=== PATIENT | female | born 2000 | race Caucasian/White ===

== ENCOUNTER → 2018-08-07 | Outpatient (CLI) | payer OTHER ==
--- NOTE | 2018-08-07 15:10 | WOMENS IMAGING REPORT ---
EXAM DESCRIPTION: U/S BREAST UNILAT LIMITED COMPLETED DATE/TIME: 08/07/2018 11:24 am REASON FOR STUDY: D24.1 D24.1 BENIGN NEOPLASM OF RIGHT BREAST COMPARISON: None. TECHNIQUE: Real-time and static grayscale imaging performed of the right breast targeted to the area of clinical/mammographic concern. Selected color Doppler images recorded. LIMITATIONS: None. FINDINGS: MASS: In the 12 o'clock location there is a slightly heterogenous solid mass measuring 2.0 x 2.9 x 3.5 cm. Fairly smooth margins. Oriented parallel to the skin. Distal acoustic enhancement . Areas of flow are present on Doppler imaging. OTHER: No other significant finding. IMPRESSION: Solid mass in the superior breast. The patient's history indicates a known fibroadenoma for 2 years with recent increase in size. Given the clinical picture, biopsy should be considered t o confirm that this is a benign fibroadenoma with no malignant components. BIRAD: 4 Suspicious. Biopsy should be performed in the absence of clinical contra-indication. RECOMMENDATION: RECOMMENDED FOLLOW-UP: Biopsy should be considered. The lesion is amenable to ultra sound-guided biopsy if desired. COMMENT: The [employer] (ACR) has developed recommendations for screening MRI of the breasts in certain patient populations, to be used in conjunction with mammography. Breast MRI s urveillance may be appropriate for women with more than 20% lifetime risk of developing breast cancer as determined by genetic testing, significant family history of the disease, or history of mantle r adiation for Hodgkins Disease. ACR Practice Guidelines 2008. TECHNICAL DOCUMENTATION: JOB ID: [id number] [employer]- All Rights Reserved Reading location - IP/workstation name: [email or web address]
== END ==
LOC: WI 11:08
PROVIDERS: ATTEND Family Medicine
DX: D24.1 Benign neoplasm of right breast (principal)
CPT/HCPCS: 76642

== ENCOUNTER 2018-11-22 06:56 | Day surgery (SDC) | payer OTHER ==
[2018-11-08 12:08] LABS: HEMATOCRIT 39.3 % (36.0-47.0); HEMOGLOBIN 13.1 g/dL (12.0-15.5); MEAN CORPUSCULAR HEMOGLOBIN 27.8 pg (27.0-33.4); MEAN CORPUSCULAR HGB CONC 33.3 g/dL (32.0-36.0); MEAN CORPUSCULAR VOLUME 84 fl (80-97); PLATELET COUNT 188 10^3/uL (150-450); RED CELL DISTRIBUTION WIDTH 15.4 % (11.5-14.0); WHITE BLOOD COUNT 3.9 10^3/uL (4.0-10.5)
[~2018-11-22 06:56] MED LIST: CEFAZOLIN 1 GM/D5W RTU 1 GM/50 ML RTUPB IV PRN; LACTATED RINGERS 1000 ML IV PRN; LIDOCAINE 0.5% INJ-PF (5 MG/ML) 50 ML SDV SUBCUT PRN
[2018-11-22] MEDS ORDERED: CEFAZOLIN 1 GM/D5W RTU 1 GM/50 ML RTUPB IV ONE (07:02)
[2018-11-22] MEDS ORDERED: SCOPOLAMINE HYDROBROMIDE 1.5 MG PATCH.TD72 ONE (07:48)
[2018-11-22] MEDS ORDERED: METOCLOPRAMIDE HCL INJ/PF 10 MG/2 ML SDV ONE (07:48)
[2018-11-22] MEDS ORDERED: MIDAZOLAM 2 MG/2 ML INJ ONE ×2 (07:48→08:34)
[2018-11-22] MEDS ORDERED: FAMOTIDINE INJ/PF 20 MG/2 ML SDV IV ONE (07:49)
[2018-11-22] MEDS ORDERED: PROPOFOL INJ 200 MG/20 ML VIAL IV ONE (08:34)
[2018-11-22] MEDS ORDERED: FENTANYL CITRATE INJ/PF 100 MCG/2 ML AMPUL ONE (08:34)
[2018-11-22] MEDS ORDERED: LIDOCAINE 1%/EPINEPHRINE INJ 20 ML VIAL ONE (08:37)
[2018-11-22] MEDS ORDERED: LIDOCAINE 1%/EPINEPHRINE INJ 20 ML VIAL INJ ONE ×2 (09:20)
--- NOTE | 2018-11-22 10:09 | Operative Report ---
Operative Report DATE OF SURGERY: 11/22/18 PREOPERATIVE DIAGNOSIS: Right breast fibroadenoma POSTOPERATIVE DIAGNOSIS: Same OPERATION: Complete excision of right breast fibroadenoma with intraoperative ultrasonography SURGEON: CAROLINE TADEO CURB MACHINE OPERATOR: DELIA GARCES ANESTHESIA: GA TISSUE REMOVED OR ALTERED: Right breast mass consistent with fibroadenoma COMPLICATIONS: None ESTIMATED BLOOD LOSS: Scant INTRAOPERATIVE FINDINGS: See below PROCEDURE: Patient was seen in the preoperative holding area where the right breast was marked. She was then taken to the main operating room where general anesthesia was induced. Right breast was prepped and draped in sterile fashion. Surgical plan surgical timeout were conducted. The right breast marked for a periareolar incision of the 12 to the 2 o'clock position. The right breast was scanned with a variable frequency linear transducer and approximately 4 to 5 cm well-circumscribed slightly lobulated mass was identified at the 1:30 position right breast, the center approximately 5 cm from the nipple. The skin was anesthetized with 1% plain lidocaine, and approximately 2 and half centimeter incision was made with a #15 blade along the confluence between the areolar and the breast epithelium. Using gentle hook retractors, we developed a subcutaneous plane towards the target mass. A series of S retractors were used for optimal exposure, and electrocautery used to separate the breast tissue from the very well delineated and circumscribed fibroadenoma. 2-0 Vicryl suture and eventually 0 silk were used to retract the specimen out of the breast pocket. The final specimen was removed from the b reast, sent to pathology for permanent analysis with a portion of 0 silk embedded. We checked the breast cavity for bleeding and there was none. The skin was in excellent condition. We felt the operation was complete. Dermis closed with 3- 0 Vicryl, and skin closed with Dermabond glue. Patient tolerated the procedure well, extubated, taken recovery in stable condition. The physician compliance assistant, Ms. Singh, provided assistance during this case by: retracting tissue, instillation of local anesthesia and closure of skin incision.
--- NOTE | 2018-11-22 10:17 | Discharge Summary ---
Discharge Summary (SDC) - Discharge Final Diagnosis: Fibroadenoma right breast Date of Surgery: 11/22/18 Discharge Date: 11/22/18 Condition: Good Treatment or Instructions: Patient to wear supportive bra; return to clinic in 2 weeks, [facility]; prescription for Toradol provided. No excessive lifting or physical activity until seen in clinic Referrals: MILE LOPEZ MD [Primary Care Provider] - Discharge Diet: As Tolerated Discharge Activity: Activity As Tolerated, No Lifting Over 10 Pounds, No Lifting/Push/Pulling Home Care Assistance: None Needed Report the Following to Your Physician Immediately: Shortness of Breath, Increase in Pain, Fever over 101 Degrees
[2018-11-22] MEDS ORDERED: SUCCINYLCHOLINE CHLORIDE INJ 200 MG/10 ML VIAL ONE (10:25)
[2018-11-22] MEDS ORDERED: KETOROLAC TROMETHAMINE 60 MG/2 ML SDV ONE (10:25)
[2018-11-22] MEDS ORDERED: DEXAMETHASONE SOD PHOSPHATE INJ 4 MG/1 ML VIAL ONE (10:25)
[2018-11-22] MEDS ORDERED: ONDANSETRON HCL INJ/PF 4 MG/2 ML SDV ONE (10:25)
[2018-11-22] MEDS ORDERED: ACETAMINOPHEN 1,000 MG/100 ML RTUPB IV ONE (10:30)
[2018-11-22 12:31] VITALS: BP 110/72
== END 2018-11-22 12:15 | disposition home or self-care (01) ==
LOC: OROUT 06:56
PROVIDERS: ATTEND Surgery
DX: D24.1 Benign neoplasm of right breast (principal)
CPT/HCPCS: 36415; 85027; 81025; 88307 ×2; 00400; 19120; J2250; J0690; J1100; J1885; J3010; J3490; J2765; J0330; J2405; J2704; S0028; J0131; 400

== ENCOUNTER → 2020-02-25 | Outpatient (CLI) | payer OTHER ==
[2020-02-25 17:00] LABS: ABSOLUTE LYMPHOCYTES (AUTO) 1.4 10^3/uL (0.5-4.7); ABSOLUTE MONOCYTES (AUTO) 0.2 10^3/uL (0.1-1.4); ABSOLUTE NEUT (AUTO) 1.9 10^3/uL (1.7-8.2); BASOPHILS % (AUTO) 0.5 % (0-2); EOSINOPHILS % (AUTO) 0.4 % (0-6); HEMOGLOBIN 13.1 g/dL (12.0-15.5); LYMPHOCYTES % (AUTO) 38.8 % (13-45); MEAN CORPUSCULAR HEMOGLOBIN 28.1 pg (27.0-33.4); MEAN CORPUSCULAR HGB CONC 33.7 g/dL (32.0-36.0); MEAN CORPUSCULAR VOLUME 83 fl (80-97); MONOCYTES % (AUTO) 6.9 % (3-13); PLATELET COUNT 197 10^3/uL (150-450); RED BLOOD COUNT 4.67 10^6/uL (3.72-5.28); RED CELL DISTRIBUTION WIDTH 14.3 % (11.5-14.0); SEGMENTED NEUTROPHILS % (AUTO) 53.4 % (42-78); TOTAL CELLS COUNTED % (AUTO) 100 %; WHITE BLOOD COUNT 3.5 10^3/uL (4.0-10.5)
[2020-02-25 17:24] LABS: ALBUMIN 4.2 g/dL (3.5-5.0); ALKALINE PHOSPHATASE 75 U/L (38-126); ANION GAP 10 (5-19); ASPARTATE AMINO TRANSFERASE 25 U/L (14-36); BILIRUBIN,TOTAL 0.5 mg/dL (0.2-1.3); BLOOD UREA NITROGEN 8 mg/dL (7-20); CALCIUM 9.3 mg/dL (8.4-10.2); CARBON DIOXIDE 22 mmol/L (22-30); CHLORIDE 105 mmol/L (98-107); GLUCOSE 82 mg/dL (75-110)
== END ==
LOC: OD 15:21
PROVIDERS: ATTEND Nurse Practitioner Psychiatric/Mental Health
DX: F41.1 Generalized anxiety disorder (principal); F42.9 Obsessive-compulsive disorder, unspecified; Z86.59 Personal history of other mental and behavioral disorders
CPT/HCPCS: 36415; 80053; 84443; 85025

== ENCOUNTER → 2020-02-28 | Outpatient (CLI) | payer OTHER ==
[2020-02-28 18:10] LABS: CHOLESTEROL 207.01 mg/dL (0-200); TRIGLYCERIDES 82 mg/dL (<150)
[2020-02-28 18:21] LABS: DIRECT LDL 133 mg/dL (<100)
== END ==
LOC: OD 16:18
PROVIDERS: ATTEND Nurse Practitioner Psychiatric/Mental Health
DX: F41.1 Generalized anxiety disorder (principal); F42.9 Obsessive-compulsive disorder, unspecified; Z86.59 Personal history of other mental and behavioral disorders
CPT/HCPCS: 36415; 80061